=== PATIENT | female | born 1990 | race American Indian/Alaskan Native ===

== ENCOUNTER 2017-12-10 16:20 | Emergency (ER) | payer MEDICAID, SELFPAY ==
[2017-12-10 16:21] VITALS: BMI 21.6
[2017-12-10 16:39] VITALS: RESP 18; TEMP 98.2
[2017-12-10 17:29] LABS: URINE BILIRUBIN NEGATIVE (NEGATIVE); URINE BLOOD SMALL (NEGATIVE); URINE GLUCOSE (UA) NEGATIVE (NEGATIVE); URINE LEUKOCYTE ESTERASE NEGATIVE Leu/uL (NEGATIVE); URINE PROTEIN 30 mg/dL (<30 mg/dL)
[2017-12-10 17:30] LABS: URINE APPEARANCE CLEAR (CLEAR); URINE COLOR YELLOW (YELLOW)
[2017-12-10 18:06] LABS: URINE RBC 15 - 20 /hpf (0-2)
[2017-12-10 18:10] VITALS: BP 133/84
--- NOTE | 2017-12-10 18:16 | ED PDOC ---
Arrival/HPI - General Chief Complaint: Back Pain Time Seen by Provider: 12/10/17 17:16 Historian: Patient - History of Present Illness Narrative History of Present Illness (Text): 12/11/17 02:25 27 y/o female with PMH of type 1 DM presents to the ED c/o left sided back pain x 2 hours. 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 She states the pain is sharp and intermittently radiates around the front of the abdomen. She cannot find a comfortable position to sit. Has not taken any medication for pain. Denies fever, chills, weakness, headache, dizziness, arm weakness, facial droop, difficulty speaking, changes in gait, N/V, vision changes, rash, urinary symptoms. Past Medical History - Provider Review Nursing Documentation Reviewed: Yes - Cardiac Hx Cardiac Disorders: No - Pulmonary Hx Respiratory Disorders: Yes Hx Pneumonia: Yes - Neurological Hx Neurological Disorder: No - HEENT Hx HEENT Disorder: No - Renal Hx Renal Disorder: No - Endocrine/Metabolic Hx Diabetes Mellitus Type 1: Yes - Hematological/Oncological Hx Blood Disorders: No - Integumentary Hx Dermatological Disorder: No - Musculoskeletal/Rheumatological Hx Musculoskeletal Disorders: No - Gastrointestinal Hx Gastrointestinal Disorders: No - Genitourinary/Gynecological Hx Genitourinary Disorders: No - Psychiatric Hx Psychophysiologic Disorder: No Hx Substance Use: No - Suicidal Assessment Feels Threatened In Home Enviroment: No Family/Social History - Physician Review Nursing Documentation Reviewed: Yes Family/Social History: No Known Family HX Smoking Status: Never Smoked Hx Alcohol Use: No Hx Substance Use: No Hx Substance Use Treatment: No Allergies/Home Meds Allergies/Adverse Reactions: Allergies No Known Allergies Allergy (Verified 12/10/17 16:28) Home Medications: Home Meds Medication Instructions Recorded Confirmed Insulin Glargine, Recombina 30 unit SC HS 12/10/17 12/10/17 [Lantus] Insulin Lispro [Humalog Kwikpen 12 unit SC TID 12/10/17 12/10/17 U-100] Review of Systems - Physician Review All systems were reviewed & negative as marked: Yes - Review of Systems Constitutional: Normal Eyes: Normal ENT: Normal Respiratory: Normal. absent: SOB, Cough Cardiovascular: Normal. absent: Chest Pain, Palpitations Gastrointestinal: Abdominal Pain. absent: Stool Changes, Constipation, Diarrhea, Nausea, Vomiting, Appetite Changes, Hematochezia, Hematemesis Genitourinary Female: Normal. absent: Dysuria, Frequency, Hematuria, Urine Output Changes, Vaginal Bleeding, Vaginal Discharge Musculoskeletal: Back Pain (left). absent: Arthralgias, Neck Pain, Joint Swelling, Myalgias Skin: Normal. absent: Rash Neurological: Normal. absent: Headache, Dizziness, Focal Weakness, Gait Changes, Speech Changes, Facial Droop, Disequilibrium, Seizure Endocrine: Normal. absent: Diaphoresis Hemo/Lymphatic: Normal. absent: Adenopathy Physical Exam Vital Signs Reviewed: Yes Vital Signs Temp Pulse Resp BP Pulse Ox 12/10/17 18:09 97 H 18 133/84 99 12/10/17 16:21 98.2 F 99 H 18 136/91 H 100 Temperature: Afebrile Blood Pressure: Normal Pulse: Regular Respiratory Rate: Normal Appearance: Positive for: Well-Appearing, Non-Toxic, Comfortable Pain Distress: None Mental Status: Positive for: Alert and Oriented X 3 Finger Stick Blood Glucose: 178 - Systems Exam Head: Present: Atraumatic, Normocephalic Pupils: Present: PERRL Extroacular Muscles: Present: EOMI Conjunctiva: Present: Normal Ears: Present: Normal Mouth: Present: Moist Mucous Membranes Pharnyx: Present: Normal Nose (External): Present: Atraumatic Nose (Internal): Present: Normal Inspection, No Active Bleeding, Moist Neck: Present: Normal Range of Motion. No: Meningeal Signs, MIDLINE TENDERNESS, Paraspinal Tenderness, Lymphadenopathy Respiratory/Chest: Present: Clear to Auscultation, Good Air Exchange. No: Respiratory Distress, Accessory Muscle Use Cardiovascular: Present: Regular Rate and Rhythm, Normal S1, S2. No: Murmurs Abdomen: Present: Tenderness (mild left flank tenderness), Normal Bowel Sounds. No: Distention, Peritoneal Signs Back: Present: Normal Inspection. No: CVA Tenderness, Midline Tenderness, Paraspinal Tenderness Upper Extremity: Present: Normal Inspection, Normal ROM, NORMAL PULSES, Neurovascularly Intact, Capillary Refill < 2s. No: Cyanosis, Edema, Tenderness, Swelling, Erythema, Temperature Abnormalties, Deformity Lower Extremity: Present: Normal Inspection, NORMAL PULSES, Normal ROM, Capillary Refill < 2 s. No: Edema, Cyanosis, Wes's Sign, Tenderness, Swelling, Erythema, Deformity, Temperature Abnormalties Neurological: Present: GCS=15, CN II-XII Intact, Speech Normal, Motor Func Grossly Intact (normal strength to b/l lower extremities), Normal Sensory Function (subjective paresthesias to left anterior thigh, normal sensation to sharp/dull and light touch), Normal Cerebellar Funct, Norm Deep Tendon Reflexes, Gait Normal, Memory Normal, Normal 2Pt Descrimination Skin: Present: Warm, Dry, Normal Color. No: Rashes Lymphatic: No: Cervical Adenopathy Psychiatric: Present: Alert, Oriented x 3, Normal Insight, Normal Concentration, Normal Affect, Normal Mood Medical Decision Making ED Course and Treatment: 12/10/17 18:19 Initial Plan: --fingerstick glucose --poc preg --UA, culture Impression: Nephrolithiasis, Sciatica Plan: -ibuprofen for pain -take home medications as prescribed -followup with primary within 2 days -referral to urology -return if symptoms worsen Reassessment Condition: Improved - Lab Interpretations Lab Results: Lab Results 12/10/17 16:43: Urine Color Yellow, Urine Appearance Clear, Urine pH 7.0, Ur Specific Stewart 1.020, Urine Protein 30 H, Urine Glucose (UA) Negative, Urine Ketones Negative, Urine Blood Small H, Urine Nitrate Negative, Urine Bilirubin Negative, Urine Urobilinogen 1.0 H, Ur Leukocyte Esterase Negative, Urine RBC 15 - 20, Urine WBC 5 - 10, Ur Epithelial Cells 10 - 12 I have reviewed the lab results: Yes Interpretation: Abnormal lab values - RAD Interpretation Radiology Orders: 12/10/17 18:06 ABD & PELVIS W/O PO OR IV CONT [CT] Stat - Medication Orders Current Medication Orders: Discontinued Medications Cyclobenzaprine HCl (Flexeril) 10 mg PO STAT STA Stop: 12/10/17 17:23 Last Admin: 12/10/17 17:34 Dose: 10 mg Ibuprofen (Motrin Tab) 600 mg PO STAT STA Stop: 12/10/17 17:23 Last Admin: 12/10/17 17:34 Dose: 600 mg MAR Pain/Vitals Document 12/10/17 17:34 GMD (Rec: 12/10/17 17:34 GMD [id number]) Pain Reassessment Is This A Pain ReAssessment? No Disposition/Present on Arrival - Present on Arrival Any Indicators Present on Arrival: Yes History of DVT/PE: No History of Uncontrolled Diabetes: Yes Urinary Catheter: No History of Decub. Ulcer: No History Surgical Site Infection Following: None - Disposition Have Diagnosis and Disposition been Completed?: Yes Diagnosis: Kidney stone, Sciatica Disposition: HOME/ ROUTINE Disposition Time: 19:00 Patient Plan: Discharge Condition: IMPROVED Discharge Instructions (ExitCare): Sciatica, Kidney Stones in Adults Additional Instructions: Take ibuprofen 600mg every 6 hours with food as needed Increase fluids Apply heating pads to back Stretch lower back to relieve sciatic pain Followup with primary within 2 days Followup with urology within 2 days Return to ED if symptoms worsen Prescriptions: Ibuprofen [Motrin Tab] 600 mg PO Q6H PRN #30 tab PRN Reason: Pain, Moderate (4-7) Referrals: Apoorva Paz MD [Medical Doctor] - Follow up with primary Omi Das MD [Staff Provider] - Follow up with primary Forms: [facility] ([place]qi), WORK NOTE
--- NOTE | 2017-12-10 19:01 | CT ---
Date of service: 12/10/2017 PROCEDURE: CT Abdomen and Pelvis without intravenous contrast HISTORY: Back and leg pain. Calculus disease suspected. Negative test (concurrent with this examination). COMPARISON: None TECHNIQUE: Unenhanced. Neither IV nor oral contrast administered Radiation dose: Total exam DLP = 449.01 mGy-cm. This CT exam was performed using one or more of the following dose reduction techniques: Automated exposure control, adjustment of the mA and/or kV according to patient size, and/or use of iterative reconstruction technique. FINDINGS: LOWER THORAX: Unremarkable. LIVER: Unremarkable. No gross lesion or ductal dilatation. GALLBLADDER AND BILE DUCTS: Unremarkable. PANCREAS: Unremarkable. No gross lesion or ductal dilatation. SPLEEN: Unremarkable. ADRENALS: Unremarkable. No mass. KIDNEYS AND URETERS: Nephrolithiasis. Multiple bilateral nonobstructing renal calculi identified. None larger than 3 mm. VASCULATURE: Unremarkable. No aortic aneurysm. BOWEL: Unremarkable. No obstruction. No gross mural thickening. APPENDIX: Unremarkable. Normal appendix. PERITONEUM: Unremarkable. No free fluid. No free air. LYMPH NODES: Unremarkable. No enlarged lymph nodes. BLADDER: Unremarkable. REPRODUCTIVE: Unremarkable. BONES: No acute fracture. OTHER FINDINGS: None. IMPRESSION: Nonobstructing small upper tract calculi bilaterally. No evidence of hydronephrosis, hydroureter or bladder abnormality.
[2017-12-10 19:08] VITALS: PULSE 89; O2SAT 98
== END 2017-12-10 19:10 | disposition home or self-care (01) ==
LOC: ED 16:20
DX: N20.0 Calculus of kidney (principal); M54.30 Sciatica, unspecified side